=== PATIENT | male | born 1960 | race Caucasian/White ===

== ENCOUNTER 2016-11-15 07:58 | Emergency (ER) | payer SELFPAY ==
[2016-11-15 07:58] VITALS: BMI 28.7
--- NOTE | 2016-11-15 08:20 | EDPRACDOC ---
- General Information Stated Complaint: AMS Time Seen by Provider: 11/15/16 08:17 Information Source: Patient, Residential Direct Support Professional Mode Of Arrival: Ambulance Home Medications: Home Medications Ranitidine HCl [Acid Control] 150 mg PO BID 02/17/16 Carvedilol [Coreg] 25 mg PO BID 11/15/16 Diazepam [Valium] 5 mg PO BID 11/15/16 Gabapentin [Neurontin] 300 mg PO BID 11/15/16 Lisinopril [Zestril] 10 mg PO DAILY 11/15/16 Oxycodone HCl [Oxycodone Immediate Release] 10 mg PO Q6H PRN 11/15/16 Allergies/Adverse Reactions: Allergies Allergy/AdvReac Type Severity Reaction Status Date / Time No Known Allergies Allergy Verified 02/17/16 18:51 - History of Present Illness HPI: PT WITH FEVER, CONFUSION, PRESENTS VIA EMS FROM HOME. COUGH. ABOUT 2 DAYS AGO LEFT FOOT BONE SPUR REMOVED AT [facility]. CAST LEFT LEG. OXYGEN 88% 2L AT TIME OF EXAM. MID 60'S OXYGEN SATS ON ARRIVAL. BUPIVICAINE NERVE BLOCK LEFT LEG. ED Past Medical History - History Reviewed Yes Nurses notes reviewed and agree except as marked - Patient Medical History Cardiac History: Reports: Hypertension, Hypercholesterolemia GI/ History: Reports: Kidney Stones, Gastroesophageal Reflux (With possible gastritis.) Musculoskeletal History: Reports: Osteoarthritis (Multiple joints with degenerative disc disease as well.) Psychological History: Denies: Depression, Anxiety, Bipolar Disorder, Substance Use Disorder Surgical History: Reports: Other (ORTHO) - Family Medical History Reports: Hypertension (Multiple family member), Diabetes (Multiple family members), Cardiac Disorders (Father had DC during surgery in his mid 70s.) - Social Medical History Smoking Status: Never smoker Social History: Denies: Substance Use Disorder - Physical Exam Constitutional: Other (SOMEWHAT CONFUSED. NO DISTRESS) Oriented to: Time, Person, Place Last recorded Vital Signs: Oxygen Pulse Oxygen Saturation O2 Device Oxygen Flow Rate Fraction of Inspired Oxygen ( FIO2) - HEENT Head: Normal ( normocephalic) Eye Exam: Normal (PERRL, EOMI, Sclera white) Oropharynx: Normal (Pharynx:Moist without exudate,Gums-no swelling) Nose: No Symptoms Reported (septum midline) Neck: Normal (FROM, trachea at midline) - Respiratory/Cardiovascular Respiratory: Normal - CTA (BBS clear to auscultation without adventitious sounds ) Cardiovascular: Tachycardia - GI Auscultation: Normal (NABS) Palpation: Normal (Soft,No rebound or guarding, non distended) Tenderness: Non tender Guerra's Sign: Negative - Musculoskeletal Back: Normal (Non-Tender) Extremities: Normal (Normal tone, Pulses 2+ No cyanosis or edema, FROM), Other ( LEFT LEG IN SHORT LEG CAST) - Integumentary Skin: Normal, Warm, Dry Lymphatics: Normal (no adenopathy) - Neurologic Memory Impaired: Unable to Test Motor Function: Normal (Normal tone, Pulses 2+ No cyanosis or edema, FROM) Cranial Nerve: Normal (CN II-X11 intact sensation, strength 5/5) Cerebellar: Normal Perception: Normal - Results 11/15/16 08:00 11/15/16 08:00 - EKG EKG #1 EKG Time: 08:08 -: Yes EKG interpreted by me Rate: bpm: 105 Wilmer: Normal Rhythm: ST Block: RBBB (INCOMPLETE) Hypertrophy: None ST: Normal Comments: NORMAL EKG - Additional Information Additional Information: LIKELY ELEVATED TROP DUE TO STRESS. DECREASED MENTAL STATUS LIKELY DUE TO DECREASED RENAL CLEARANCE OF MEDS. ED Critical Care Note - Critical Care Note Total Time (mins): 35 Comments: Due to the presence of and / or the risk of deterioration, my attendance to this patient required critical care time, including assessment/reassessment, documentation, ordering and interpreting ancillary studies, discussion with ED staff and consultants,patient and family, and excludes time spent on separately billable procedures. - Departure Yes I personally saw and evaluated the patient. Disposition: Trans. to Other Hospital ([facility]) Final Diagnosis: Acute hepatitis, Acute metabolic encephalopathy Acute respiratory failure Qualifiers: Respiratory failure complication: hypoxia Qualified Code(s): J96.01 - Acute respiratory failure with hypoxia Acute renal failure Qualifiers: Acute renal failure type: unspecified Qualified Code(s): N17.9 - Acute kidney failure, unspecified Rhabdomyolysis Qualifiers: Rhabdomyolysis type: non-traumatic Qualified Code(s): M62.82 - Rhabdomyolysis Pneumonia Qualifiers: Pneumonia type: due to unspecified organism Laterality: left Lung location: lower lobe of lung Qualified Code(s): J18.1 - Lobar pneumonia, unspecified organism Referrals: None,No Provider [Primary Care Provider] - One Week Prescriptions: No Action Ranitidine HCl [Acid Control] 150 mg PO BID Gabapentin [Neurontin] 300 mg PO BID Diazepam [Valium] 5 mg PO BID Carvedilol [Coreg] 25 mg PO BID Oxycodone HCl [Oxycodone Immediate Release] 10 mg PO Q6H PRN PRN Reason: Pain Lisinopril [Zestril] 10 mg PO DAILY Decision to Transfer Time: 10:39 (DR YOUSSEF ACCEPTS TO [facility]) - Physician Consulted Hospitalist Time Called: 10:12 Provider Called: Joanna Rutledge Time Construction Project Coordinator Returned Call: 10:12 Consult Reason: D/W DR Amaya RECOMMENDS TRANSFER BACK TO [facility]
[2016-11-15] MEDS ORDERED: NALOXONE 0.4 MG/ML AMPULE IV ONE (08:21)
[2016-11-15 08:42] LABS: ALLEN'S TEST PASS; TCO2 28.7 MMOL/L (23-27)
[2016-11-15 08:43] LABS: ABG Draw Site Right Radial; ABG Draw Tech SI
[2016-11-15 08:45] LABS: MPV 8.9 fL (7.4-10.4)
[2016-11-15 08:51] LABS: AMORPHOUS OCC; LEUKOCYTES/URINE NEG (NEGATIVE); NITRITE/URINE NEG (NEGATIVE); RBC/URINE 0-2 (0-2); URINE OCCULT BLOOD 3+ (NEG/TRACE); WBC/URINE 0-2 (0-2)
[2016-11-15 08:54] LABS: PARTIAL THROMB. TIME 25.1 SEC (22-35); PT-INR 1.1
[2016-11-15] MEDS ORDERED: NS 1,000 ML IV ONE ×2 (08:55→10:01)
[2016-11-15 08:58] LABS: ETOH-MGDL < 10 mg/dL
[2016-11-15 08:59] LABS: BLOOD UREA NITROGEN 29 MG/DL (9-20); CALC CORRECTED 8.6 MG/DL (8.4-10.2); CALCIUM 8.2 MG/DL (8.4-10.2); CALCULATED OSMOLALITY 273 MOs/Kg (270-290); CHLORIDE 101 mEq/L (98-107); GLUCOSE 120 mg/dL (70-99); SODIUM LEVEL 138 mEq/L (137-146); TOTAL PROTEIN 6.5 G/DL (6.3-8.2)
--- NOTE | 2016-11-15 09:38 | DIRPT ---
CLINICAL DATA: Sepsis. EXAM: PORTABLE CHEST 1 VIEW COMPARISON: February 17, 2016. FINDINGS: Stable cardiomediastinal silhouette. Lateral portion of left lung base is not included in [id number]. Increased right basilar airspace opacity is noted concerning for pneumonia or atelectasis. No pneumothorax or significant pleural effusion is noted. No definite abnormality seen in the visualized portion of the left lung. IMPRESSION: Increased right basilar opacity is noted concerning for pneumonia or possibly atelectasis. Follow-up radiographs are recommended to ensure resolution. Electronically Signed By: Charan Leal Jr, M.D. On: 11/15/2016 09:35
[2016-11-15 09:51] LABS: SEG NEUTROPHIL 54 % (45-76)
[2016-11-15] MEDS ORDERED: PIPERACILLIN AND TAZOBACTAM 4.5 GM in D5W 100 ML IV ONE (09:56)
[2016-11-15] MEDS ORDERED: HEPARIN 5000 UNITS/ML VIAL IV ONE (09:57)
[2016-11-15] MEDS ORDERED: ALBUTEROL 0.083% 3 ML NEB NEB ONE (10:02)
[2016-11-15] MEDS ORDERED: ASPIRIN (CHEWABLE) 81 MG TAB PO ONE (10:05)
[2016-11-15] MEDS ORDERED: IBUPROFEN 600 MG TAB PO ONE (10:05)
[2016-11-15 10:10] LABS: CPK TOTAL WITH POSSIBLE MB 30237 IU/L (55-170)
[2016-11-15] MEDS ORDERED: HEPARIN 500 ML IV SCH (10:15)
[2016-11-15 10:25] LABS: CPKMB 29.4 ng/mL (0-4.5); CPKMB RELATIVE INDEX 0.1 (0.0-2.2)
[2016-11-15] MEDS ORDERED: HEPARIN 5000 UNITS/ML VIAL IV SCH (11:00)
--- NOTE | 2016-11-15 11:59 | DIRPT ---
CLINICAL DATA: Altered mental status, fever, cough EXAM: CT HEAD WITHOUT CONTRAST TECHNIQUE: Contiguous axial images were obtained from the base of the skull through the vertex without intravenous contrast. COMPARISON: None. FINDINGS: Brain: No evidence of acute infarction, hemorrhage, extra-axial collection, ventriculomegaly, or mass effect. Vascular: Atherosclerotic and physiologic intracranial calcifications. Skull: Negative for fracture or focal lesion. Sinuses/Orbits: Mucoperiosteal thickening and Fluid level in the sphenoid sinus on the right. Otherwise negative. Other: None. IMPRESSION: 1. Negative for bleed or other acute intracranial process. Electronically Signed By: Bel Fermin M.D. On: 11/15/2016 11:56
[2016-11-15 12:00] LABS: ALL NEG? NO
--- NOTE | 2016-11-15 12:03 | DIRPT ---
CLINICAL DATA: Fever, cough. EXAM: CT CHEST WITHOUT CONTRAST TECHNIQUE: Multidetector CT imaging of the chest was performed following the standard protocol without IV contrast. COMPARISON: Chest radiograph of same day. CT scan of February 17, 2016. FINDINGS: No pneumothorax or pleural effusion is noted. Multifocal airspace opacities are noted in both lungs, but most prominently in the left lower lobe. These findings are most consistent with pneumonia. No evidence of thoracic aortic aneurysm is seen on these unenhanced images. No mediastinal mass or adenopathy is noted. Visualized portion of upper abdomen is unremarkable. No significant osseous abnormality is noted. IMPRESSION: Findings consistent with multifocal pneumonia, most prominently seen in the left lower lobe. Electronically Signed By: Charan Leal Jr, M.D. On: 11/15/2016 12:01
[2016-11-15 12:08] LABS: MDMA* NEG (NEGATIVE); METHAMPHETAMINES *POSITIVE* (NEGATIVE); OXYCODONE *POSITIVE* (NEGATIVE)
[2016-11-15 12:44] VITALS: BP 101/58; PULSE 89; TEMP 99.5
== END 2016-11-15 12:10 | disposition short-term general hospital (02) ==
LOC: ED 07:58
DX: J96.01 Acute respiratory failure with hypoxia (principal); N17.9 Acute kidney failure, unspecified; B17.9 Acute viral hepatitis, unspecified; G93.41 Metabolic encephalopathy; M62.82 Rhabdomyolysis; J18.9 Pneumonia, unspecified organism
CPT/HCPCS: 36415; 36600; 70450; 71010; 71250; 80053; 80307; 80329; 81001; 82140; 82550; 82553; 82803; 83605; 83690; 83880; 84484; 85007; 85027; 85379; 85610; 85730; 87040; 87086; 93005; 94640; 96361; 96365; 96366; 96375; 99284; J1644; J2310; J2543; J3370; J3490; J7060